=== PATIENT | male | born 1995 | race Two or more races ===

== ENCOUNTER 2025-08-06 19:29 | Emergency (ER) | payer MEDICAID, SELFPAY ==
[2025-08-06 19:33] VITALS: BMI 34.0
[2025-08-06 20:07] VITALS: BP 155/93; PULSE 87; RESP 18; TEMP 36.7; O2SAT 98
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
[2025-08-06] MEDS: HYDROcodone/APAP 5/325 TABLET 1 TAB PO (20:29)
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
== END 2025-08-06 21:24 | disposition home or self-care (01) ==
PROVIDERS: Emergency Provider Emergency Medicine
DX: S43.402A Unspecified sprain of left shoulder joint, initial encounter (principal); S33.5XXA Sprain of ligaments of lumbar spine, initial encounter; S13.4XXA Sprain of ligaments of cervical spine, initial encounter; S23.3XXA Sprain of ligaments of thoracic spine, initial encounter; V49.40XA Driver injured in collision with unspecified motor vehicles in traffic accident, initial encounter; Y92.410 Unspecified street and highway as the place of occurrence of the external cause
CPT/HCPCS: 72040; 72072; 72100; 73030; 99283; A9270